=== PATIENT | female | born 1990 | race Caucasian/White ===

== ENCOUNTER 2017-06-24 01:15 | Emergency (ER) | payer OTHER ==
[2017-06-24] MEDS ORDERED: LIDOCAINE 1%/EPINEPHRINE INJ 20 ML VIAL INJ ONE (02:27)
[2017-06-24 02:51] LABS: ABSOLUTE BASOPHILS # (AUTO) 0.1 10^3/uL (0.0-0.2); ABSOLUTE LYMPHOCYTES (AUTO) 1.1 10^3/uL (0.5-4.7); ABSOLUTE MONOCYTES (AUTO) 0.3 10^3/uL (0.1-1.4); ABSOLUTE NEUT (AUTO) 2.9 10^3/uL (1.7-8.2); BASOPHILS % (AUTO) 1.2 % (0-2); EOSINOPHILS % (AUTO) 0.6 % (0-6); HEMOGLOBIN 12.3 g/dL (12.0-15.5); MEAN CORPUSCULAR HEMOGLOBIN 31.7 pg (27.0-33.4); MEAN CORPUSCULAR HGB CONC 35.2 g/dL (32.0-36.0); MEAN CORPUSCULAR VOLUME 90 fl (80-97); PLATELET COUNT 214 10^3/uL (150-450); RED BLOOD COUNT 3.89 10^6/uL (3.72-5.28); RED CELL DISTRIBUTION WIDTH 12.2 % (11.5-14.0); SEGMENTED NEUTROPHILS % (AUTO) 66.2 % (42-78); TOTAL CELLS COUNTED % (AUTO) 100 %; WHITE BLOOD COUNT 4.4 10^3/uL (4.0-10.5)
[2017-06-24] MEDS ORDERED: CEPHALEXIN 500 MG CAPSULE PO ONE (03:03)
--- NOTE | 2017-06-24 03:08 | ER Document Report ---
ED General - General Chief Complaint: Vaginal Bleeding Stated Complaint: VAGINAL BLEEDING Time Seen by Provider: 06/24/17 01:49 Notes: Patient is 27-year-old female presents with complaint of bleeding from the vaginal area that occurred during sex. She continued bleeding therefore came to the ER. She concerned she might have a laceration in the vaginal area. She denies any pain. She has no other complaints this time. She takes no medications and is otherwise healthy. TRAVEL OUTSIDE OF THE [place] IN LAST 30 DAYS: No - Related Data Allergies/Adverse Reactions: No Known Allergies Allergy (Verified 06/24/17 01:22) Past Medical History - Social History Smoking Status: Never Smoker Chew tobacco use (# tins/day): No Frequency of alcohol use: None Drug Abuse: None Family History: Reviewed & Not Pertinent Patient has suicidal ideation: No Patient has homicidal ideation: No Renal/ Medical History: Denies: Hx Peritoneal Dialysis Review of Systems - Review of Systems Notes: My Normal Review Basic REVIEW OF SYSTEMS: CONSTITUTIONAL : Denies fever, chills, or sweats. Denies recent illness. FEMALE GENITOURINARY: Vaginal bleeding NEUROLOGICAL: Denies altered mental status or loss of consciousness. ALL OTHER SYSTEMS REVIEWED AND NEGATIVE. Physical Exam - Vital signs Vitals: Temp Pulse Resp BP Pulse Ox 98.7 F 111 H 20 131/77 H 100 06/24/17 01:29 06/24/17 01:29 06/24/17 01:29 06/24/17 01:29 06/24/17 01:29 - Notes Notes: General Appearance: Well nourished, alert, cooperative, no acute distress, no obvious discomfort. Vitals: reviewed, See vital signs table. Pelvic exam: Patient has approximately 2 cm laceration of the right labia majora. Small amount of venous oozing at this time. No laceration seen within vaginal canal. Oblique exam performed a female cop winder Kailee who is library information technician Neuro: speech clear, oriented x 3, normal affect, responds appropriately to questions. Course - Re-evaluation Re-evalutation: 06/24/17 06:14 Patient is well-appearing. I did suture the laceration. Patient tolerated this well. Informed her not to have sex until cleared by gynecology. She is to follow-up with him this week. Placed on antibiotic to prevent infection. Laceration was thoroughly irrigated and cleaned before being closed. She is to return to ER if she has recurrent heavy vaginal bleeding, redness or swelling to the labia, or fevers. - Vital Signs Vital signs: Temp Pulse Resp BP Pulse Ox 97.8 F 85 18 115/73 97 06/24/17 03:39 06/24/17 03:39 06/24/17 03:39 06/24/17 03:39 06/24/17 03:39 - Laboratory Result Diagrams: 06/24/17 02:34 Laboratory results interpreted by me: 06/24/17 02:34 Hct 35.0 L Procedures - Laceration/Wound Repair labia Wound length (cm): 2.5 Wound's Depth, Shape: Linear Anesthetic type: 1% Lidocaine w/epi Volume Anesthetic (mLs): 1 Wound explored: Clean Irrigated w/ Saline (mLs): 30 Wound Repaired With: Sutures Suture Size/Type: 5:0, Vicryl Number of Sutures: 1 - running subcutaneous Complications: No Discharge - Discharge Clinical Impression: Laceration of labia majora Qualifiers: Encounter type: initial encounter Qualified Code(s): S31.41XA - Laceration without foreign body of vagina and vulva, initial encounter Condition: Good Disposition: HOME, SELF-CARE Additional Instructions: Please take the antibiotic as prescribed. please wast the area twice a day with soap and water. Please follow up with the dielectric embossing machine operator (Dr. Queen) in 2-3 days for reevaluation. Please return to the ER immediately if you develop heavy bleeding, severe swelling, fevers, or any concerns for infection. Prescriptions: Cephalexin Monohydrate [Keflex 500 mg Capsule] 500 mg PO BID 5 Days capsule Forms: Return to Work
[2017-06-24 03:54] VITALS: BP 115/73
== END 2017-06-24 03:55 | disposition home or self-care (01) ==
LOC: ER 01:15
PROC: 0HQAXZZ Repair Inguinal Skin, External Approach (ICD-10-PCS; principal; 2017-06-24)
DX: S31.41XA Laceration without foreign body of vagina and vulva, initial encounter (principal); X58.XXXA Exposure to other specified factors, initial encounter
CPT/HCPCS: 99284; 36415; 85025; 12001; J3490